=== PATIENT | female | born 1955 | race Caucasian/White ===

== ENCOUNTER 2017-02-14 10:30 | Emergency (ER) | payer OTHER ==
--- NOTE | 2017-02-14 11:22 | EDM.PDOC ---
ED HPI GENERAL MEDICAL PROBLEM - General Chief Complaint: General Stated Complaint: MOUTH PROBLEM Time Seen by Provider: 02/14/17 10:47 Source of Information: Reports: Patient, RN, RN Notes Reviewed History Limitations: Reports: No Limitations - History of Present Illness INITIAL COMMENTS - FREE TEXT/NARRATIVE: Patient presents the emergency room at [facility] complaining of right upper jaw/facial pain. The patient states that her symptoms began 3 days ago. The patient is concerned she may have a dental abscess. No previous history of any dental problems outside of regular cavities. The patient does see her dentist on a regular basis. The patient complains of left facial swelling that started earlier this morning. The patient states that her to are not percussion sensitive, however she does have pain around the right upper jaw line. The patient has been brushing her teeth more regularly using floss, and also using an [id number] antiseptic mouthwash. Onset Date: 02/11/17 - Related Data Allergies Allergy/AdvReac Type Severity Reaction Status Date / Time No Known Drug Allergies Allergy Other Verified 05/19/14 17:37 Home Meds: Home Meds predniSONE [Deltasone] 20 mg PO BID #6 tablet 02/14/17 [Rx] Social & Family History - Tobacco Use Second Hand Smoke Exposure: No - Alcohol Use Days Per Week of Alcohol Use: 0 - Recreational Drug Use Recreational Drug Use: No ED ROS GENERAL - Review of Systems Review Of Systems: See Below Constitutional: Denies: Fever, Chills, Weakness HEENT: Reports: Dental Pain Respiratory: Denies: Shortness of Breath, Cough Cardiovascular: Denies: Chest Pain, Palpitations Skin: Reports: No Symptoms Neurological: Reports: No Symptoms ED EXAM, GENERAL - Physical Exam Exam: See Below Exam Limited By: No Limitations General Appearance: Alert, Mild Distress Throat/Mouth: Other (Right cheek swelling; very tender to palpation upper right jaw line; moderate tooth decay with abscess formation) Neck: Supple Respiratory/Chest: No Respiratory Distress, Lungs Clear, Normal Breath Sounds Cardiovascular: Regular Rate, Rhythm Neurological: Alert, Oriented Skin Exam: Warm, Dry, Intact, Normal Color, No Rash Departure - Departure Time of Disposition: 11:25 Disposition: Home, Self-Care 01 Condition: good Clinical Impression: Dental abscess - Discharge Information Prescriptions: predniSONE [Deltasone] 20 mg PO BID #6 tablet Instructions: Dental Abscess Referrals: Laverne Flores MD [Primary Care Provider] - Forms: ED Department Discharge - Problem List Review Problem List Initiated/Reviewed/Updated: Yes
[2017-02-14] MEDS ORDERED: Take Home: Clindamycin HCl 150 MG Cap, 6 Cap Pack PO ONE (11:25)
[2017-02-14] MEDS ORDERED: Take Home: predniSONE 20 MG, 2 Tab Pack PO ONE (11:26)
[2017-02-14 14:22] VITALS: BP 142/71
== END 2017-02-14 11:40 | disposition home or self-care (01) ==
LOC: VM.ED 10:30
DX: K04.7 Periapical abscess without sinus (principal)
CPT/HCPCS: 99282; A9270